=== PATIENT | female | born 1970 | race African-American/Black ===

== ENCOUNTER 2018-06-02 11:06 | Inpatient (IN) | payer OTHER ==
[2018-06-02 11:24] VITALS: BMI 35.6
--- NOTE | 2018-06-02 12:01 | HP ---
COWS - Scale Resting Pulse: 0= [place] 80 or Below Sweatin= Chills/Flushing Restless Observation: 1= Difficult to Sit Still Pupil Size: 1= Pupils >than Normal Bone or Joint Aches: 2= Severe Diffuse Aches Runny Nose/ Eye Tearin= Runny Nose/Eyes GI Upset > 30mins: 2= Nausea/Diarrhea Tremor Observation: 2= Slight Tremor Visible Yawning Observation: 1= 1-2x During Session Anxiety or Irritability: 2=Irritable/Anxious Goose Flesh Skin: 0=Smooth Skin COWS Score: 14 CIWA Score Nausea/Vomitin Muscle Tremors: 2 Anxiety: 2 Agitation: 2 Paroxysmal Sweats: 1-Minimal Palms Moist Orientation: 0-Oriented Tacttile Disturbances: 1-Very Mild Itch/Numbness Auditory Disturbances: 1-Very Mild Visual Disturbances: 0-None Headache: 2-Mild CIWA-Ar Total Score: 13 - Admission Criteria [facility]ASAS Guidelines: Admission for Medically Managed Detox: Requires at least one of the followin. CIWA greater than 12 2. Seizures within the past 24 hours 3. Delirium tremens within the past 24 hours 4. Hallucinations within the past 24 hours 5. Acute intervention needed for co occurring medical disorder 6. Acute intervention needed for co occurring psychiatric disorder 7. Severe withdrawal that cannot be handled at a lower level of care (continued vomiting, continued diarrhea, abnormal vital signs) requiring intravenous medication and/or fluids 8. Patient presents the following: CIWA greater than 12 Admission Criteria Met: Admission criteria met Admission ROS [facility] Chief Complaint: i need help to stop using heroin,alcohol and cocaine Allergies/Adverse Reactions: Allergies Allergy/AdvReac Type Severity Reaction Status Date / Time No Known Allergies Allergy Verified 06/02/18 11:53 History of Present Illness: this 47 years old female with heroin,alcohol and cocaine dependence,seeking detox,withdrawal symptoms,last detox [facility] 04/29/16 to `0/yncope alcohol related bipolar disorder,ptsd,schizoaffective disorder non compliance s/p arthroscopic surgery left knee in 2016 obesity - Ebola screening Have you traveled outside of the country in the last 21 days: No Have you had contact with anyone from an Ebola affected area: No Have you been sick,other than usual withdrawal symptoms: No Do you have a fever: No - Review of Systems Constitutional: Chills, Loss of Appetite, Malaise, Night Sweats, Changes in sleep, Weakness EENT: reports: Tearing, Nose Congestion Respiratory: reports: No Symptoms reported, Other (asthma) Cardiac: reports: No Symptoms Reported GI: reports: Nausea, Poor Appetite, Vomiting, Abdominal cramping : reports: No Symptoms Reported Musculoskeletal: reports: Back Pain, Joint Pain, Muscle Pain Integumentary: reports: Dryness Neuro: reports: Headache, Tremors Endocrine: reports: No Symptoms Reported Hematology: reports: No Symptoms Reported Psychiatric: reports: No Sypmtoms Reported, Judgement Intact, Mood/Affect Appropiate, Orientated x3, Anxious, Depressed (bipolar disorder,ptsd,) Patient History - Patient Medical History Hx Anemia: Yes (NO TXMENT) Hx Asthma: Yes (ALBUTEROL INH) Hx Chronic Obstructive Pulmonary Disease (COPD): No Hx Cancer: No Hx Cardiac Disorders: No Hx Congestive Heart Failure: No Hx Hypertension: No Hx Hypercholesterolemia: No Hx Pacemaker: No HX Cerebrovascular Accident: No Hx Seizures: No Hx Dementia: No Hx Diabetes: No Hx Gastrointestinal Disorders: No Hx Liver Disease: No Hx Genitourinary Disorders: No Hx Sexually Transmitted Disorders: No Hx Renal Disease (ESRD): No Hx Thyroid Disease: No Hx Human Immunodeficiency Virus (HIV): No Hx Hepatitis C: Yes (DX 15 YEARS AGO, NO TXMENT) Hx Depression: Yes (ON MEDS NOT COMPLIANT) Hx Suicide Attempt: No Hx Bipolar Disorder: Yes (ON MEDS NOT COMPLIANT) Hx Schizophrenia: No Other Medical History: ptsd.no sucidal,no homicidal - Patient Surgical History Past Surgical History: Yes Hx Neurologic Surgery: No Hx Cataract Extraction: No Hx Cardiac Surgery: No Hx Lung Surgery: No Hx Breast Surgery: No Hx Breast Biopsy: No Hx Abdominal Surgery: No Hx Appendectomy: No Hx Cholecystectomy: No Hx Genitourinary Surgery: No Hx Section: No Hx Orthopedic Surgery: Yes (L KNEE arthroscopic surgery in 2016) Anesthesia Reaction: No - PPD History Previous Implant?: Yes Documented Results: Negative w/o proof Implanted On Prior R Admission?: Yes Date: 05/02/16 PPD to be Administered?: Yes - Reproductive History Patient is a Female of Child Bearing Age (11 -55 yrs old): Yes Last Menstrual Period: 06/01/18 Patient : No - Smoking Cessation Smoking history: Current every day smoker Have you smoked in the past 12 months: Yes Aproximately how many cigarettes per day: 10 Cigars Per Day: 0 Hx Chewing Tobacco Use: No Initiated information on smoking cessation: Yes 'Breaking Loose' booklet given: 06/02/18 - Substance & Tx. History Hx Alcohol Use: Yes Hx Substance Use: Yes Substance Use Type: Alcohol, Cocaine, Heroin Hx Substance Use Treatment: Yes ([facility] 04/29/16 to 05/03/16) - Substances Abused Heroin Route: Inhalation Frequency: Daily Amount used: 5 BAGS Age of first use: 19 Date of Last Use: 06/02/18 Alcohol Route: Oral Frequency: Daily Amount used: 2 PINT VODKA Age of first use: 15 Date of Last Use: 06/02/18 Crack Route: Smoking Frequency: Daily Amount used: $100 Age of first use: 15 Date of Last Use: 06/02/18 Family Disease History - Family Disease History Family Disease History: Heart Disease: Mother ( [place]/ ALCOHOLISM), Other: Father (ALCOHOLISM), Mother, Sister (ALCOHOL/ CRACK) Admission Physical Exam [facility] - Vital Signs Vital Signs: Vital Signs - 24 hr 06/02/18 11:19 Temperature 97.1 F L Pulse Rate 78 Respiratory 18 Rate Blood Pressure 149/92 - Physical General Appearance: Yes: Moderate Distress, Tremorous, Irritable, Sweating, Anxious HEENTM: Yes: Normal ENT Inspection, ZEUS, Pharynx Normal Respiratory: Yes: Lungs Clear, Normal Breath Sounds, No Respiratory Distress Neck: Yes: Within Normal Limits, Supple, Trachea in good position Breast: Yes: Breast Exam Deferred Cardiology: Yes: Within Normal Limits, Regular Rhythm, Regular Rate, S1, S2 Abdominal: Yes: Within Normal Limits, Normal Bowel Sounds, Non Tender, Flat, Soft Genitourinary: Yes: Within Normal Limits Back: Yes: Muscle Spasm Musculoskeletal: Yes: full range of Motion, Back pain, Joint Stiffness, Muscle Pain Extremities: Yes: Within Normal Limits, Normal Range of Motion, Tremors, Other ( s/p arthroscopy left knee) Neurological: Yes: business planner II-XII NML intact, Fully Oriented, Alert, Motor Strength 5/5 Integumentary: Yes: Dry Lymphatic: Yes: Within Normal Limits - Diagnostic (1) Opioid dependence with withdrawal Current Visit: Yes Status: Acute (2) Alcohol dependence with uncomplicated withdrawal Current Visit: No Status: Acute (3) Asthma Current Visit: No Status: Acute Qualifiers: Asthma severity: mild intermittent Asthma complication type: uncomplicated (4) Cocaine dependence Current Visit: Yes Status: Chronic (5) Hepatitis C Current Visit: Yes Status: Acute (6) Bipolar disorder Current Visit: No Status: Suspected Comment: Historical diagnosis (self- report). (7) Nicotine dependence Current Visit: Yes Status: Acute (8) Obesity Current Visit: Yes Status: Acute (9) History of left knee surgery Current Visit: Yes Status: Acute (10) PTSD (post-traumatic stress disorder) Current Visit: Yes Status: Acute Cleared for Admission S - Detox or Rehab S Level of Care: Medically Managed Detox Regimen/Protocol: Methadone/Librium S Breath Alcohol Content Breath Alcohol Content: 0 Urine Pregancy Test - Result Urine Test Results: Negative- NO Line Present Urine Drug Screen - Results Drug Screen Negative: No Urine Drug Screen Results: JESÚS-Cocaine, OPI-Opiates
[2018-06-02] MEDS ORDERED: LOPERAMIDE HCL 2 MG CAPSULE PO PRN (12:21)
[2018-06-02] MEDS ORDERED: ACETAMINOPHEN 325 MG TABLET (FP) PO PRN (12:21)
[2018-06-02] MEDS ORDERED: P-EPHED 60MG/TRIPROLIDI 2.5MG TABLET PO PRN (12:21)
[2018-06-02] MEDS ORDERED: IBUPROFEN 400 MG TABLET (FP) PO PRN (12:21)
[2018-06-02] MEDS ORDERED: MENTHOL/PHENOL 1 EACH UD MM PRN (12:21)
[2018-06-02] MEDS ORDERED: MAGNESIUM HYDROX 2400MG/30ML ORAL SUSPENSION 30 ML CUP PO PRN (12:21)
[2018-06-02] MEDS ORDERED: chlordiazePOXIDE HCL 25 MG CAPSULE PO PRN (12:21)
[2018-06-02] MEDS ORDERED: MAGNESIUM CITRATE 300 ML BOTTLE PO PRN (12:21)
[2018-06-02] MEDS ORDERED: guaiFENesin/D-METHORPHAN HB 10 ML UNIT-DOSE CUPS PO PRN (12:21)
[2018-06-02] MEDS ORDERED: ALBUTEROL SO4 8 GM HFA INHALER IH PRN (12:25)
[2018-06-02] MEDS ORDERED: METHADONE HCL 10 MG TABLET (FOR DETOX USE ONLY) PO ONE ×2 (13:05→23:00)
[2018-06-02] MEDS: NICOTINE 21 MG/24 HOURS TOPICAL PATCH TD SCH (15:17)
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
[2018-06-02] MEDS: chlordiazePOXIDE HCL 25 MG CAPSULE PO SCH ×2 (18:28→22:16)
[2018-06-02 19:49] LABS: URINE APPEARANCE CLOUDY; URINE BILIRUBIN NEGATIVE (<2.0 mg/dL); URINE GLUCOSE (UA) NEGATIVE (NEGATIVE); URINE KETONE NEGATIVE (NEGATIVE); URINE LEUK ESTERASE TRACE (NEGATIVE); URINE NITRITE NEGATIVE (NEGATIVE); URINE PROTEIN 2+ (NEGATIVE); URINE UROBILINOGEN 4.0 E.U/dl mg/dL (0.2-1.0)
[2018-06-02 20:04] LABS: URINE COLOR BROWN
[2018-06-02 20:08] LABS: EPI CELLS FEW /HPF (FEW)
[2018-06-02] MEDS: MELATONIN 5 MG TABLETS PO PRN (22:16)
[2018-06-02] MEDS: THIAMINE HCL 100 MG TABLET (FP) PO SCH (22:17)
[2018-06-02] MEDS: HALOPERIDOL 5 MG TABLET (FP) PO SCH (22:17)
[2018-06-03] MEDS: chlordiazePOXIDE HCL 25 MG CAPSULE PO SCH ×4 (06:07→22:36)
[2018-06-03] MEDS ORDERED: METHADONE HCL 10 MG TABLET (FOR DETOX USE ONLY) PO SCH (10:00)
[2018-06-03] MEDS: PRENATAL VITAMINS W/ FOLIC ACID TABLET (FP) PO SCH (10:07)
[2018-06-03] MEDS: NICOTINE 21 MG/24 HOURS TOPICAL PATCH TD SCH (10:08)
--- NOTE | 2018-06-03 10:24 | PN ---
[facility] CIWA - CIWA Score Nausea/Vomitin-No Nausea/No Vomiting Muscle Tremors: 3 Anxiety: 3 Agitation: 3 Paroxysmal Sweats: 3 Orientation: 0-Oriented Tacttile Disturbances: 0-None Auditory Disturbances: 0-None Visual Disturbances: 0-None Headache: 0-None Present CIWA-Ar Total Score: 12 [facility]HS COWS - Scale Resting Pulse: 1= [place] 81-100 Sweatin=Flushed/Facial Moisture Restless Observation: 1= Difficult to Sit Still Pupil Size: 0= Normal to Room Light Bone or Joint Aches: 2= Severe Diffuse Aches Runny Nose/ Eye Tearin= Nasal Congestion GI Upset > 30mins: 1= Stomach Cramp Tremor Observation of Outstretched Hands: 2= Slight Tremor Visible Yawning Observation: 2= >3x During Session Anxiety or Irritability: 2=Irritable/Anxious Goose Flesh Skin: 0=Smooth Skin COWS Score: 14 S Progress Note (SOAP) Subjective: agitation sleepy sweats chills interrupted sleep body aches Objective: 06/03/18 10:22 Vital Signs Temperature 98.1 F 06/03/18 09:54 Pulse Rate 83 06/03/18 09:54 Respiratory Rate 18 06/03/18 09:54 Blood Pressure 151/84 06/03/18 09:54 O2 Sat by Pulse Oximetry (%) Laboratory Tests 06/02/18 06/02/18 12:00 13:30 Urine Color Brown Urine Appearance Cloudy Urine pH 6.0 Ur Specific [place] 1.025 Urine Protein 2+ H Urine Glucose (UA) Negative Urine Ketones Negative Urine Blood 3+ H Urine Nitrite Negative Urine Bilirubin Negative Urine Urobilinogen 4.0 e.u/dl H Ur Leukocyte Esterase Trace Urine WBC (Auto) 217 Urine RBC (Auto) 373 Ur Epithelial Cells Few HIV 1&2 Antibody Screen Negative HIV P24 Antigen Negative repeat u/a labs pending aaox3 ambulating no acute distress Assessment: 06/03/18 11:03 withdrawal sx Plan: continue detox increase fluids repeat u/a labs pending
[2018-06-03 10:27] LABS: HEMOGLOBIN 13.1 GM/dL (10.7-15.3); MCH 28.7 pg (25.7-33.7); MCHC 31.9 g/dl (32.0-36.0); MEAN CELL VOLUME 89.8 fl (80-96); MEAN PLT VOLUME 10.3 fl (7.5-11.1); PLATELET COUNT 264 K/MM3 (134-434); RBC 4.57 M/mm3 (3.60-5.2); RDW 14.4 % (11.6-15.6); WHITE BLOOD COUNT 6.1 K/mm3 (4.0-10.0)
[2018-06-03 11:16] LABS: ALBUMIN 3.2 g/dl (3.4-5.0); ALK PHOS 69 U/L (45-117); ANION GAP 8 MMOL/L (8-16); BILIRUBIN,TOTAL 0.4 mg/dL (0.2-1); BLOOD UREA NITROGEN 20 mg/dL (7-18); CALCIUM 9.1 mg/dL (8.5-10.1); CHLORIDE 110 mmol/L (98-107); CO2 24 mmol/L (21-32); CREATININE 1.1 mg/dL (0.55-1.3); GLUCOSE,RANDOM 81 mg/dL (74-106); POTASSIUM 4.5 mmol/L (3.5-5.1); SGOT/AST 31 U/L (15-37); SGPT/ALT 52 U/L (13-61); SODIUM 141 mmol/L (136-145); TOT PROT 7.8 g/dl (6.4-8.2)
--- NOTE | 2018-06-03 17:02 | PN ---
[facility] Progress Note Note: Psychiatric nurse practitioner note: Patient is currently on methadone taper and is ordered Haldol 5mg qhs. Medication interactions can cause prolong QTC. EKG as not been ordered. Will order EKG.
[2018-06-03] MEDS: HALOPERIDOL 5 MG TABLET (FP) PO SCH (22:36)
[2018-06-03] MEDS: BENZTROPINE MESYLATE 1 MG TABLET (FP) PO SCH (22:36)
[2018-06-03] MEDS: THIAMINE HCL 100 MG TABLET (FP) PO SCH (22:36)
[2018-06-04] MEDS: chlordiazePOXIDE HCL 25 MG CAPSULE PO SCH ×2 (05:37→10:28)
[2018-06-04] MEDS: PRENATAL VITAMINS W/ FOLIC ACID TABLET (FP) PO SCH (10:28)
[2018-06-04] MEDS: METHADONE HCL 5 MG TABLET (FOR DETOX USE ONLY) PO SCH (10:28)
[2018-06-04] MEDS: NICOTINE 21 MG/24 HOURS TOPICAL PATCH TD SCH (10:28)
--- NOTE | 2018-06-04 10:33 | PN ---
[facility] CIWA - CIWA Score Nausea/Vomitin-No Nausea/No Vomiting Muscle Tremors: 3 Anxiety: 3 Agitation: 3 Paroxysmal Sweats: 3 Orientation: 0-Oriented Tacttile Disturbances: 0-None Auditory Disturbances: 0-None Visual Disturbances: 0-None Headache: 0-None Present CIWA-Ar Total Score: 12 [facility] COWS - Scale Resting Pulse: 1= [place] 81-100 Sweatin=Flushed/Facial Moisture Restless Observation: 0= Sits Still Pupil Size: 0= Normal to Room Light Bone or Joint Aches: 2= Severe Diffuse Aches Runny Nose/ Eye Tearin= Nasal Congestion GI Upset > 30mins: 0= None Tremor Observation of Outstretched Hands: 2= Slight Tremor Visible Yawning Observation: 2= >3x During Session Anxiety or Irritability: 2=Irritable/Anxious Goose Flesh Skin: 0=Smooth Skin COWS Score: 12 S Progress Note (SOAP) Subjective: irritable body aches sweats interrupted sleep tired I think i have a UTI Objective: 06/04/18 10:30 Vital Signs Temperature 97.9 F 06/04/18 09:35 Pulse Rate 84 06/04/18 09:35 Respiratory Rate 18 06/04/18 09:35 Blood Pressure 130/62 06/04/18 09:35 O2 Sat by Pulse Oximetry (%) Laboratory Tests 06/02/18 06/02/18 06/03/18 12:00 13:30 06:00 WBC 6.1 RBC 4.57 Hgb 13.1 Hct 41.0 D MCV 89.8 MCH 28.7 MCHC 31.9 L RDW 14.4 Plt Count 264 D MPV 10.3 Sodium Potassium Chloride Carbon Dioxide Anion Gap BUN Creatinine Creat Clearance w eGFR Random Glucose Calcium Total Bilirubin AST ALT Alkaline Phosphatase Total Protein Albumin Urine Color Brown Urine Appearance Cloudy Urine pH 6.0 Ur Specific [place] 1.025 Urine Protein 2+ H Urine Glucose (UA) Negative Urine Ketones Negative Urine Blood 3+ H Urine Nitrite Negative Urine Bilirubin Negative Urine Urobilinogen 4.0 e.u/dl H Ur Leukocyte Esterase Trace Urine WBC (Auto) 217 Urine RBC (Auto) 373 Ur Epithelial Cells Few HIV 1&2 Antibody Screen Negative HIV P24 Antigen Negative 06/03/18 06:00 WBC RBC Hgb Hct MCV MCH MCHC RDW Plt Count MPV Sodium 141 Potassium 4.5 Chloride 110 H Carbon Dioxide 24 Anion Gap 8 BUN 20 H Creatinine 1.1 Creat Clearance w eGFR 53.47 Random Glucose 81 Calcium 9.1 Total Bilirubin 0.4 AST 31 ALT 52 Alkaline Phosphatase 69 Total Protein 7.8 Albumin 3.2 L Urine Color Urine Appearance Urine pH Ur Specific [place] Urine Protein Urine Glucose (UA) Urine Ketones Urine Blood Urine Nitrite Urine Bilirubin Urine Urobilinogen Ur Leukocyte Esterase Urine WBC (Auto) Urine RBC (Auto) Ur Epithelial Cells HIV 1&2 Antibody Screen HIV P24 Antigen aaox3 ambulating no acute distress elevated WBC in urine noted; ABX ordered Assessment: 06/04/18 10:33 withdrawal sx Plan: continue detox increase fluids ABX ordered repeat u/a
[2018-06-04] MEDS: SULFAMETHOXAZOLE/TRIMETHOPRIM 800MG/160MG D.S. TABLET PO SCH ×2 (10:58→23:10)
[2018-06-04] MEDS: chlordiazePOXIDE 5 MG CAPSULE PO SCH ×2 (18:51→23:10)
[2018-06-04] MEDS: HALOPERIDOL 5 MG TABLET (FP) PO SCH (23:11)
[2018-06-04] MEDS: THIAMINE HCL 100 MG TABLET (FP) PO SCH (23:11)
[2018-06-04] MEDS: BENZTROPINE MESYLATE 1 MG TABLET (FP) PO SCH (23:11)
[2018-06-05] MEDS: MAG HYDROX/AL HYDROX/SIMETH 30 ML UNIT-DOSE CUP PO PRN ×2 (01:42→13:10)
[2018-06-05 01:46] LABS: URINE APPEARANCE CLOUDY; URINE BILIRUBIN NEGATIVE (<2.0 mg/dL); URINE COLOR YELLOW; URINE GLUCOSE (UA) NEGATIVE (NEGATIVE); URINE KETONE NEGATIVE (NEGATIVE); URINE LEUK ESTERASE TRACE (NEGATIVE); URINE NITRITE NEGATIVE (NEGATIVE); URINE PROTEIN NEGATIVE (NEGATIVE)
[2018-06-05 02:19] LABS: EPI CELLS RARE /HPF (FEW); URINE BACTERIA FEW /hpf (NONE SEEN); URINE HYALINE CAST 1 /lpf; URINE MUCUS RARE
[2018-06-05] MEDS: chlordiazePOXIDE 5 MG CAPSULE PO SCH ×2 (05:46→10:46)
--- NOTE | 2018-06-05 09:52 | EKG ---
Test Reason : Blood Pressure : / mmHG Vent. Rate : 069 BPM Atrial Rate : 069 BPM P-R Int : 154 ms QRS Dur : 080 ms QT Int : 428 ms P-R-T Axes : 039 069 046 degrees QTc Int : 458 ms NORMAL SINUS RHYTHM POSSIBLE LEFT ATRIAL ENLARGEMENT NO PREVIOUS ECGS AVAILABLE Confirmed by IZZY DAVALOS MD ([id number]) on 06/05/2018 9:52:44 AM Referred By: Confirmed By:IZZY DAVALOS MD
[2018-06-05] MEDS: PRENATAL VITAMINS W/ FOLIC ACID TABLET (FP) PO SCH (10:46)
[2018-06-05] MEDS: METHADONE HCL 5 MG TABLET (FOR DETOX USE ONLY) PO SCH (10:46)
[2018-06-05] MEDS: SULFAMETHOXAZOLE/TRIMETHOPRIM 800MG/160MG D.S. TABLET PO SCH ×2 (10:46→22:58)
[2018-06-05] MEDS: NICOTINE 21 MG/24 HOURS TOPICAL PATCH TD SCH (10:47)
--- NOTE | 2018-06-05 12:13 | PN ---
[facility] Progress Note (SOAP) Subjective: little sweats feeling better. Objective: 06/05/18 12:12 Vital Signs Temperature 98.4 F 06/05/18 09:21 Pulse Rate 67 06/05/18 09:21 Respiratory Rate 18 06/05/18 09:21 Blood Pressure 135/80 06/05/18 09:21 O2 Sat by Pulse Oximetry (%) Laboratory Tests 06/02/18 06/02/18 06/03/18 12:00 13:30 06:00 WBC 6.1 RBC 4.57 Hgb 13.1 Hct 41.0 D MCV 89.8 MCH 28.7 MCHC 31.9 L RDW 14.4 Plt Count 264 D MPV 10.3 Sodium Potassium Chloride Carbon Dioxide Anion Gap BUN Creatinine Creat Clearance w eGFR Random Glucose Calcium Total Bilirubin AST ALT Alkaline Phosphatase Total Protein Albumin Urine Color Brown Urine Appearance Cloudy Urine pH 6.0 Ur Specific [place] 1.025 Urine Protein 2+ H Urine Glucose (UA) Negative Urine Ketones Negative Urine Blood 3+ H Urine Nitrite Negative Urine Bilirubin Negative Urine Urobilinogen 4.0 e.u/dl H Ur Leukocyte Esterase Trace Urine WBC (Auto) 217 Urine RBC (Auto) 373 Ur Epithelial Cells Few Urine Bacteria Hyaline Casts Urine Mucus RPR Titer HIV 1&2 Antibody Screen Negative HIV P24 Antigen Negative 06/03/18 06/03/18 06/04/18 06:00 06:00 14:50 WBC RBC Hgb Hct MCV MCH MCHC RDW Plt Count MPV Sodium 141 Potassium 4.5 Chloride 110 H Carbon Dioxide 24 Anion Gap 8 BUN 20 H Creatinine 1.1 Creat Clearance w eGFR 53.47 Random Glucose 81 Calcium 9.1 Total Bilirubin 0.4 AST 31 ALT 52 Alkaline Phosphatase 69 Total Protein 7.8 Albumin 3.2 L Urine Color Yellow Urine Appearance Cloudy Urine pH 5.0 Ur Specific [place] 1.020 Urine Protein Negative Urine Glucose (UA) Negative Urine Ketones Negative Urine Blood 3+ H Urine Nitrite Negative Urine Bilirubin Negative Urine Urobilinogen 2.0 H Ur Leukocyte Esterase Trace Urine WBC (Auto) 6 Urine RBC (Auto) 4 Ur Epithelial Cells Rare Urine Bacteria Few Hyaline Casts 1 Urine Mucus Rare RPR Titer Nonreactive HIV 1&2 Antibody Screen HIV P24 Antigen u/a improving pt on ABX aaox3 ambulating no acute distress Assessment: 06/05/18 12:13 withdrawal sx Plan: continue detox increase fluids d/c in am
[2018-06-05] MEDS: chlordiazePOXIDE HCL 10 MG CAPSULE PO SCH ×2 (21:32→22:58)
[2018-06-05] MEDS: THIAMINE HCL 100 MG TABLET (FP) PO SCH (22:58)
[2018-06-05] MEDS: HALOPERIDOL 5 MG TABLET (FP) PO SCH (22:58)
[2018-06-05] MEDS: BENZTROPINE MESYLATE 1 MG TABLET (FP) PO SCH (22:58)
[2018-06-06] MEDS: chlordiazePOXIDE HCL 10 MG CAPSULE PO SCH ×2 (05:37→10:15)
[2018-06-06] MEDS ORDERED: METHADONE HCL 10 MG TABLET (FOR DETOX USE ONLY) PO SCH (10:00)
[2018-06-06] MEDS: SULFAMETHOXAZOLE/TRIMETHOPRIM 800MG/160MG D.S. TABLET PO SCH ×2 (10:15→22:05)
[2018-06-06] MEDS: PRENATAL VITAMINS W/ FOLIC ACID TABLET (FP) PO SCH (10:15)
[2018-06-06] MEDS: NICOTINE 21 MG/24 HOURS TOPICAL PATCH TD SCH (10:15)
--- NOTE | 2018-06-06 12:50 | PN ---
[facility] Progress Note (SOAP) Subjective: feeling better Objective: 06/06/18 12:49 Vital Signs Temperature 99.7 F H 06/06/18 09:40 Pulse Rate 73 06/06/18 09:40 Respiratory Rate 16 06/06/18 09:40 Blood Pressure 128/54 L 06/06/18 09:40 O2 Sat by Pulse Oximetry (%) aaox3 ambulating no acute distress Assessment: 06/06/18 12:49 mild to no withdrawal sx Plan: continue detox as ordered increase fluids d/c in am
[2018-06-06] MEDS: MAG HYDROX/AL HYDROX/SIMETH 30 ML UNIT-DOSE CUP PO PRN ×2 (13:20→21:54)
[2018-06-06] MEDS: HALOPERIDOL 5 MG TABLET (FP) PO SCH (22:05)
[2018-06-06] MEDS: BENZTROPINE MESYLATE 1 MG TABLET (FP) PO SCH (22:05)
[2018-06-06] MEDS: THIAMINE HCL 100 MG TABLET (FP) PO SCH (22:05)
[2018-06-06] MEDS: MELATONIN 5 MG TABLETS PO PRN (22:06)
[2018-06-07] MEDS ORDERED: METHADONE HCL 5 MG TABLET (FOR DETOX USE ONLY) PO SCH (06:00)
[2018-06-07 09:34] VITALS: BP 138/61; PULSE 100; TEMP 98.9
--- NOTE | 2018-06-07 12:43 | DS ---
[facility] Detox Discharge Summary Admission Date: 06/02/18 Discharge Date: 06/07/18 - History Present History: Alcohol Dependence, Opioid Dependence Additional Comments: 47 years old female admitted on 06/02/18 for alcohol and opiate withdrawal sx completed detox regimen tolerated well denies withdrawal sx alert oriented x 3 no acute distress aftercare [facility] - Physical Exam Results Vital Signs: Vital Signs Temperature 98.9 F 06/07/18 09:33 Pulse Rate 100 H 06/07/18 09:33 Respiratory Rate 16 06/07/18 09:33 Blood Pressure 138/61 06/07/18 09:33 O2 Sat by Pulse Oximetry (%) Pertinent Admission Physical Exam Findings: alcohol and opiate withdrawal sx Vital Signs Temperature 98.9 F 06/07/18 09:33 Pulse Rate 100 H 06/07/18 09:33 Respiratory Rate 16 06/07/18 09:33 Blood Pressure 138/61 06/07/18 09:33 O2 Sat by Pulse Oximetry (%) Laboratory Last Values WBC 6.1 K/mm3 (4.0-10.0) 06/03/18 06:00 RBC 4.57 M/mm3 (3.60-5.2) 06/03/18 06:00 Hgb 13.1 GM/dL (10.7-15.3) 06/03/18 06:00 Hct 41.0 % (32.4-45.2) D 06/03/18 06:00 MCV 89.8 fl (80-96) 06/03/18 06:00 MCH 28.7 pg (25.7-33.7) 06/03/18 06:00 MCHC 31.9 g/dl (32.0-36.0) L 06/03/18 06:00 RDW 14.4 % (11.6-15.6) 06/03/18 06:00 Plt Count 264 K/MM3 (134-434) D 06/03/18 06:00 MPV 10.3 fl (7.5-11.1) 06/03/18 06:00 Sodium 141 mmol/L (136-145) 06/03/18 06:00 Potassium 4.5 mmol/L (3.5-5.1) 06/03/18 06:00 Chloride 110 mmol/L (98-107) H 06/03/18 06:00 Carbon Dioxide 24 mmol/L (21-32) 06/03/18 06:00 Anion Gap 8 MMOL/L (8-16) 06/03/18 06:00 BUN 20 mg/dL (7-18) H 06/03/18 06:00 Creatinine 1.1 mg/dL (0.55-1.3) 06/03/18 06:00 Creat Clearance w eGFR 53.47 (>60) 06/03/18 06:00 Random Glucose 81 mg/dL (74-106) 06/03/18 06:00 Calcium 9.1 mg/dL (8.5-10.1) 06/03/18 06:00 Total Bilirubin 0.4 mg/dL (0.2-1) 06/03/18 06:00 AST 31 U/L (15-37) 06/03/18 06:00 ALT 52 U/L (13-61) 06/03/18 06:00 Alkaline Phosphatase 69 U/L (45-117) 06/03/18 06:00 Total Protein 7.8 g/dl (6.4-8.2) 06/03/18 06:00 Albumin 3.2 g/dl (3.4-5.0) L 06/03/18 06:00 Urine Color Yellow 06/04/18 14:50 Urine Appearance Cloudy 06/04/18 14:50 Urine pH 5.0 (5.0-8.0) 06/04/18 14:50 Ur Specific [place] 1.020 (1.010-1.035) 06/04/18 14:50 Urine Protein Negative (NEGATIVE) 06/04/18 14:50 Urine Glucose (UA) Negative (NEGATIVE) 06/04/18 14:50 Urine Ketones Negative (NEGATIVE) 06/04/18 14:50 Urine Blood 3+ (NEGATIVE) H 06/04/18 14:50 Urine Nitrite Negative (NEGATIVE) 06/04/18 14:50 Urine Bilirubin Negative (<2.0 mg/dL) 06/04/18 14:50 Urine Urobilinogen 2.0 mg/dL (0.2-1.0) H 06/04/18 14:50 Ur Leukocyte Esterase Trace (NEGATIVE) 06/04/18 14:50 Urine WBC (Auto) 6 /hpf (3-5) 06/04/18 14:50 Urine RBC (Auto) 4 /hpf (0-3) 06/04/18 14:50 Ur Epithelial Cells Rare /HPF (FEW) 06/04/18 14:50 Urine Bacteria Few /hpf (NONE SEEN) 06/04/18 14:50 Hyaline Casts 1 /lpf 06/04/18 14:50 Urine Mucus Rare 06/04/18 14:50 RPR Titer Nonreactive (NONREACTIVE) 06/03/18 06:00 HIV 1&2 Antibody Screen Negative 06/02/18 12:00 HIV P24 Antigen Negative 06/02/18 12:00 lab ntoed - Treatment Hospital Course: Detox Protocol Followed, Detoxed Safely, Responded well, Discharged Condition Good, Rehab Referral Accepted Patient has Accepted a Rehab Referral to: [facility] - Medication Discharge Medications: Ambulatory Orders Sulfamethoxazole/Trimethoprim [Bactrim DS -] 1 each PO BID #10 tablet 06/07/18 - Diagnosis (1) Alcohol dependence with uncomplicated withdrawal Status: Acute (2) Hepatitis C Status: Chronic Qualifiers: Viral hepatitis chronicity: unspecified Hepatic coma status: without hepatic coma Qualified Code(s): B19.20 - Unspecified viral hepatitis C without hepatic coma (3) Nicotine dependence Status: Acute Qualifiers: Nicotine product type: cigarettes Substance use status: in withdrawal Qualified Code(s): F17.213 - Nicotine dependence, cigarettes, with withdrawal (4) Substance induced mood disorder Status: Suspected - AMA Did Patient Leave Against Medical Advice: No
== END 2018-06-07 10:08 | disposition home or self-care (01) | DRG 773 ==
LOC: YASAS 11:06 → Y6N 12:22
PROVIDERS: ADMIT Neuromusculoskeletal Medicine & OMM; ATTEND Neuromusculoskeletal Medicine & OMM
PROC: HZ2ZZZZ Detoxification Services for Substance Abuse Treatment (ICD-10-PCS; principal; 2018-06-02)
DX: F11.23 Opioid dependence with withdrawal (principal); F10.230 Alcohol dependence with withdrawal, uncomplicated; F14.20 Cocaine dependence, uncomplicated; F17.210 Nicotine dependence, cigarettes, uncomplicated; F19.24 Other psychoactive substance dependence with psychoactive substance-induced mood disorder; F31.9 Bipolar disorder, unspecified; F60.9 Personality disorder, unspecified; F25.9 Schizoaffective disorder, unspecified; F43.10 Post-traumatic stress disorder, unspecified; B18.2 Chronic viral hepatitis C; D64.9 Anemia, unspecified; J45.909 Unspecified asthma, uncomplicated; E66.9 Obesity, unspecified; Z68.35 Body mass index [BMI] 35.0-35.9, adult; Z98.890 Other specified postprocedural states
CPT/HCPCS: 36415; 80053; 81003; 81015; 85027; 86593; 87389; 93005; 93010

== ENCOUNTER 2018-10-14 20:45 | Inpatient (IN) | payer OTHER ==
--- NOTE | 2018-10-14 22:58 | HP ---
COWS - Scale Resting Pulse: 1= MO 81-100 Sweatin=Flushed/Facial Moisture Restless Observation: 0= Sits Still Pupil Size: 1= Pupils >than Normal Bone or Joint Aches: 4=Acute Joint/Muscle Pain Runny Nose/ Eye Tearin= Runny Nose/Eyes GI Upset > 30mins: 1= Stomach Cramp Tremor Observation: 4= Gross Tremor/Twitching Yawning Observation: 1= 1-2x During Session Anxiety or Irritability: 2=Irritable/Anxious Goose Flesh Skin: 0=Smooth Skin COWS Score: 18 CIWA Score Nausea/Vomitin-Mild Nausea/No Vomiting Muscle Tremors: 4-Moderate,w/Arms Extend Anxiety: 4-Mod. Anxious/Guarded Agitation: 4-Moderately Restless Paroxysmal Sweats: 2 Orientation: 0-Oriented Tacttile Disturbances: 0-None Auditory Disturbances: 0-None Visual Disturbances: 0-None Headache: 3-Moderate CIWA-Ar Total Score: 18 - Admission Criteria OASAS Guidelines: Admission for Medically Managed Detox: Requires at least one of the followin. CIWA greater than 12 2. Seizures within the past 24 hours 3. Delirium tremens within the past 24 hours 4. Hallucinations within the past 24 hours 5. Acute intervention needed for co occurring medical disorder 6. Acute intervention needed for co occurring psychiatric disorder 7. Severe withdrawal that cannot be handled at a lower level of care (continued vomiting, continued diarrhea, abnormal vital signs) requiring intravenous medication and/or fluids 8. 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 Patient was in detox 2017 - 06/09/2018. She reports 2 days of sobriety. She reports history of anxiety, anemia, Hep C and asthma. Patient denies suicidal ideation at this time Exam Limitations: No Limitations - Ebola screening Have you traveled outside of the country in the last 21 days: No (N) Have you had contact with anyone from an Ebola affected area: No Do you have a fever: No - Review of Systems Constitutional: Chills, Night Sweats, Unexplained wgt Loss EENT: reports: Nose Congestion Respiratory: reports: No Symptoms reported Cardiac: reports: No Symptoms Reported GI: reports: Poor Appetite, Poor Fluid Intake, Abdominal cramping : reports: No Symptoms Reported Musculoskeletal: reports: Back Pain Integumentary: reports: Dryness, Flushing Neuro: reports: Headache, Tremors Endocrine: reports: No Symptoms Reported Hematology: reports: No Symptoms Reported Psychiatric: reports: Anxious, Depressed Other Systems: Reviewed and Negative Patient History - Patient Medical History Hx Anemia: Yes (NO TXMENT) Hx Asthma: Yes (ALBUTEROL INH) Hx Chronic Obstructive Pulmonary Disease (COPD): No Hx Cancer: No Hx Cardiac Disorders: No Hx Congestive Heart Failure: No Hx Hypertension: No Hx Hypercholesterolemia: No Hx Pacemaker: No HX Cerebrovascular Accident: No Hx Seizures: No Hx Dementia: No Hx Diabetes: No Hx Gastrointestinal Disorders: No Hx Liver Disease: No Hx Genitourinary Disorders: No Hx Sexually Transmitted Disorders: No Hx Renal Disease (ESRD): No Hx Thyroid Disease: No Hx Human Immunodeficiency Virus (HIV): No Hx Hepatitis C: Yes (DX 15 YEARS AGO, NO TXMENT) Hx Depression: Yes (ON MEDS NOT COMPLIANT) Hx Suicide Attempt: No (DENIES SUICIDAL IDEATION AT THIS TIME) Hx Bipolar Disorder: Yes (ON MEDS NOT COMPLIANT) Hx Schizophrenia: No - Patient Surgical History Past Surgical History: Yes Hx Neurologic Surgery: No Hx Cataract Extraction: No Hx Cardiac Surgery: No Hx Lung Surgery: No Hx Breast Surgery: No Hx Breast Biopsy: No Hx Abdominal Surgery: No Hx Appendectomy: No Hx Cholecystectomy: No Hx Genitourinary Surgery: No Hx Section: No Hx Orthopedic Surgery: Yes (L KNEE arthroscopic surgery in 2016) Anesthesia Reaction: No - PPD History Date: 06/04/18 Results: 0 mm PPD to be Administered?: No - Reproductive History Patient is a Female of Child Bearing Age (11 -55 yrs old): Yes Last Menstrual Period: 06/01/18 Patient : No - Smoking Cessation Smoking history: Current every day smoker Have you smoked in the past 12 months: Yes Aproximately how many cigarettes per day: 10 Cigars Per Day: 0 Hx Chewing Tobacco Use: No Initiated information on smoking cessation: Yes 'Breaking Loose' booklet given: 10/14/18 - Substance & Tx. History Hx Alcohol Use: Yes Hx Substance Use: Yes Substance Use Type: Alcohol, Cocaine - Substances abused Heroin Substance route: Inhalation Frequency: Daily Amount used: 3 to 6 bags Age of first use: 47 Crack Substance route: Smoking Frequency: Daily Amount used: 10 bags Age of first use: 15 Date of last use: 10/14/18 Alcohol Substance route: Smoking Frequency: Daily Amount used: half a pint Age of first use: 14 Date of last use: 10/14/18 Family Disease History - Family Disease History Family Disease History: Heart Disease: Mother ( PA/ ALCOHOLISM), Other: Father (ALCOHOLISM), Mother, Sister (ALCOHOL/ CRACK) Admission Physical Exam [facility] - Vital Signs Vital Signs: Vital Signs - 24 hr 10/14/18 22:15 Temperature 97.8 F Pulse Rate 90 Respiratory 20 Rate Blood Pressure 136/89 - Physical General Appearance: Yes: Moderate Distress, Tremorous, Sweating, Anxious HEENTM: Yes: Normal Voice, ZEUS, Pharynx Normal Respiratory: Yes: Lungs Clear, Normal Breath Sounds, No Respiratory Distress Neck: Yes: Supple Breast: Yes: Breast Exam Deferred Cardiology: Yes: Regular Rhythm, Regular Rate Abdominal: Yes: Normal Bowel Sounds Genitourinary: Yes: Within Normal Limits Back: Yes: Normal Inspection Musculoskeletal: Yes: Back pain Extremities: Yes: Tremors Neurological: Yes: Alert, Normal Mood/Affect Integumentary: Yes: Warm Lymphatic: Yes: Within Normal Limits - Diagnostic (1) Asthma Current Visit: Yes Status: Chronic Qualifiers: Asthma severity: mild intermittent Asthma complication type: uncomplicated (2) Nicotine dependence Current Visit: Yes Status: Chronic Qualifiers: Nicotine product type: cigarettes Substance use status: in withdrawal Qualified Code(s): F17.213 - Nicotine dependence, cigarettes, with withdrawal (3) Obesity Current Visit: Yes Status: Chronic (4) Opioid dependence with withdrawal Current Visit: Yes Status: Chronic (5) Cocaine dependence Current Visit: Yes Status: Chronic (6) Hepatitis C Current Visit: Yes Status: Chronic Qualifiers: Viral hepatitis chronicity: unspecified Hepatic coma status: without hepatic coma Qualified Code(s): B19.20 - Unspecified viral hepatitis C without hepatic coma Cleared for Admission S - Detox or Rehab [facility] Level of Care: Medically Managed Detox Regimen/Protocol: Methadone/Librium Breathalyzer - Breathalyzer Breathalyzer: 0 POC Urine test - Test device test lot number: [id number] Expiration date: 03/13/20 - Control test control: Yes - Result Urine Test Results: Negative - NO line present Urine Drug Screen - Test Device Lot number: [id number] Expiration date: 10/11/19 - Control Is test valid?: Yes - Results Drug screen NEGATIVE: No Urine drug screen results: JESÚS-Cocaine, MOP-Opiates Inpatient Rehab Admission - Rehab Decision to Admit Inpatient rehab admission?: No
[2018-10-14] MEDS ORDERED: METHADONE HCL 10 MG TABLET (FOR DETOX USE ONLY) PO ONE (23:00)
[2018-10-14] MEDS ORDERED: BISMUTH SUBSALICYLATE 524 MG/30 ML UD PO PRN (23:08)
[2018-10-14] MEDS ORDERED: MAG HYDROX/AL HYDROX/SIMETH 30 ML UNIT-DOSE CUP PO PRN (23:08)
[2018-10-14] MEDS ORDERED: cloNIDine HCL 0.1 MG TABLET PO PRN (23:08)
[2018-10-14] MEDS ORDERED: METHOCARBAMOL 500 MG TABLET PO PRN (23:08)
[2018-10-14] MEDS ORDERED: MAGNESIUM HYDROX 2400MG/30ML ORAL SUSPENSION 30 ML CUP PO PRN (23:08)
[2018-10-14] MEDS ORDERED: chlordiazePOXIDE HCL 25 MG CAPSULE PO PRN (23:08)
[2018-10-14] MEDS ORDERED: MAGNESIUM CITRATE 300 ML BOTTLE PO PRN (23:08)
[2018-10-14] MEDS ORDERED: ACETAMINOPHEN 325 MG TABLET (FP) PO PRN ×2 (23:08)
[2018-10-14] MEDS ORDERED: MENTHOL/PHENOL 1 EACH UD MM PRN (23:08)
[2018-10-14] MEDS ORDERED: IBUPROFEN 400 MG TABLET (FP) PO PRN (23:08)
[2018-10-15] MEDS: chlordiazePOXIDE HCL 25 MG CAPSULE PO SCH ×5 (00:03→22:30)
[2018-10-15] MEDS: MELATONIN 5 MG TABLETS PO PRN (01:47)
[2018-10-15] MEDS ORDERED: NICOTINE POLACRILEX 2 MG GUM BUC PRN (07:08)
--- NOTE | 2018-10-15 09:31 | PN ---
S CIWA - CIWA Score Nausea/Vomitin Muscle Tremors: 2 Anxiety: 2 Agitation: 2 Paroxysmal Sweats: 1-Minimal Palms Moist Orientation: 0-Oriented Tacttile Disturbances: 1-Very Mild Itch/Numbness Auditory Disturbances: 1-Very Mild Visual Disturbances: 0-None Headache: 2-Mild CIWA-Ar Total Score: 13 BHS COWS - Scale Resting Pulse: 0= ND 80 or Below Sweatin= Chills/Flushing Restless Observation: 1= Difficult to Sit Still Pupil Size: 1= Pupils >than Normal Bone or Joint Aches: 2= Severe Diffuse Aches Runny Nose/ Eye Tearin= Nasal Congestion GI Upset > 30mins: 2= Nausea/Diarrhea Tremor Observation of Outstretched Hands: 2= Slight Tremor Visible Yawning Observation: 1= 1-2x During Session Anxiety or Irritability: 2=Irritable/Anxious Goose Flesh Skin: 0=Smooth Skin COWS Score: 13 BHS Progress Note (SOAP) Subjective: alert,irritable,anxious,interrupted sleep,tremor,pain in the body and back Objective: 10/15/18 09:30 Vital Signs Temperature 97.5 F L 10/15/18 07:29 Pulse Rate 77 10/15/18 07:29 Respiratory Rate 18 10/15/18 07:29 Blood Pressure 123/62 10/15/18 07:29 O2 Sat by Pulse Oximetry (%) 10/15/18 09:30 labs pending Assessment: 10/15/18 09:30 withdrawal symptom Plan: continue detox
[2018-10-15] MEDS ORDERED: METHADONE HCL 10 MG TABLET (FOR DETOX USE ONLY) PO ONE (10:00)
[2018-10-15] MEDS: PRENATAL VITAMINS W/ FOLIC ACID TABLET (FP) PO SCH (10:22)
[2018-10-15 10:23] LABS: HEMOGLOBIN 12.2 GM/dL (10.7-15.3); MCH 29.7 pg (25.7-33.7); MEAN CELL VOLUME 90.2 fl (80-96); MEAN PLT VOLUME 10.3 fl (7.5-11.1); PLATELET COUNT 214 K/MM3 (134-434); RDW 14.7 % (11.6-15.6); WHITE BLOOD COUNT 6.4 K/mm3 (4.0-10.0)
[2018-10-15] MEDS: NICOTINE 14 MG/24 HOURS TOPICAL PATCH TD SCH (10:25)
[2018-10-15 10:32] LABS: ALBUMIN 2.7 g/dl (3.4-5.0); ALK PHOS 66 U/L (45-117); BILIRUBIN,TOTAL 0.1 mg/dL (0.2-1); BLOOD UREA NITROGEN 21 mg/dL (7-18); CALCIUM 8.5 mg/dL (8.5-10.1); CHLORIDE 110 mmol/L (98-107); CO2 25 mmol/L (21-32); CREATININE 1.2 mg/dL (0.55-1.3); GLUCOSE,RANDOM 90 mg/dL (74-106); POTASSIUM 3.7 mmol/L (3.5-5.1); SGOT/AST 27 U/L (15-37); SGPT/ALT 42 U/L (13-61); SODIUM 144 mmol/L (136-145); TOT PROT 6.6 g/dl (6.4-8.2)
[2018-10-15 10:39] LABS: ANION GAP 8 MMOL/L (8-16)
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
[2018-10-15] MEDS: THIAMINE HCL 100 MG TABLET (FP) PO SCH (22:28)
[2018-10-15] MEDS: HALOPERIDOL 5 MG TABLET (FP) PO SCH (22:29)
[2018-10-15] MEDS: BENZTROPINE MESYLATE 1 MG TABLET (FP) PO SCH (22:29)
[2018-10-16] MEDS: chlordiazePOXIDE HCL 25 MG CAPSULE PO SCH ×3 (06:47→18:42)
--- NOTE | 2018-10-16 09:58 | PN ---
BHS COWS - Scale Resting Pulse: 0= OK 80 or Below Sweatin= Chills/Flushing Restless Observation: 1= Difficult to Sit Still Pupil Size: 1= Pupils >than Normal Bone or Joint Aches: 2= Severe Diffuse Aches Runny Nose/ Eye Tearin= Runny Nose/Eyes GI Upset > 30mins: 2= Nausea/Diarrhea Tremor Observation of Outstretched Hands: 2= Slight Tremor Visible Yawning Observation: 1= 1-2x During Session Anxiety or Irritability: 2=Irritable/Anxious Goose Flesh Skin: 0=Smooth Skin COWS Score: 14 S Progress Note (SOAP) Subjective: alert,irritable,anxious,interrupted sleep,pain in the body and back,tremor Objective: 10/16/18 10:00 Vital Signs Temperature 97.8 F 10/16/18 09:28 Pulse Rate 72 10/16/18 09:28 Respiratory Rate 18 10/16/18 09:28 Blood Pressure 104/58 L 10/16/18 09:28 O2 Sat by Pulse Oximetry (%) 10/16/18 10:00 Laboratory Last Values WBC 6.4 K/mm3 (4.0-10.0) 10/15/18 07:00 RBC 4.10 M/mm3 (3.60-5.2) 10/15/18 07:00 Hgb 12.2 GM/dL (10.7-15.3) 10/15/18 07:00 Hct 37.0 % (32.4-45.2) 10/15/18 07:00 MCV 90.2 fl (80-96) 10/15/18 07:00 MCH 29.7 pg (25.7-33.7) 10/15/18 07:00 MCHC 33.0 g/dl (32.0-36.0) 10/15/18 07:00 RDW 14.7 % (11.6-15.6) 10/15/18 07:00 Plt Count 214 K/MM3 (134-434) 10/15/18 07:00 MPV 10.3 fl (7.5-11.1) 10/15/18 07:00 Sodium 144 mmol/L (136-145) 10/15/18 07:00 Potassium 3.7 mmol/L (3.5-5.1) 10/15/18 07:00 Chloride 110 mmol/L (98-107) H 10/15/18 07:00 Carbon Dioxide 25 mmol/L (21-32) 10/15/18 07:00 Anion Gap 8 MMOL/L (8-16) 10/15/18 07:00 BUN 21 mg/dL (7-18) H 10/15/18 07:00 Creatinine 1.2 mg/dL (0.55-1.3) 10/15/18 07:00 Creat Clearance w eGFR 48.36 (>60) 10/15/18 07:00 Random Glucose 90 mg/dL (74-106) 10/15/18 07:00 Calcium 8.5 mg/dL (8.5-10.1) 10/15/18 07:00 Total Bilirubin 0.1 mg/dL (0.2-1) L 10/15/18 07:00 AST 27 U/L (15-37) 10/15/18 07:00 ALT 42 U/L (13-61) 10/15/18 07:00 Alkaline Phosphatase 66 U/L (45-117) 10/15/18 07:00 Total Protein 6.6 g/dl (6.4-8.2) 10/15/18 07:00 Albumin 2.7 g/dl (3.4-5.0) L 10/15/18 07:00 RPR Titer Nonreactive (NONREACTIVE) 10/15/18 07:00 HIV 1&2 Antibody Screen Negative 10/15/18 07:00 HIV P24 Antigen Negative 10/15/18 07:00 Assessment: 10/16/18 10:01 withdrawal symptom Plan: continue detox
[2018-10-16] MEDS ORDERED: METHADONE HCL 10 MG TABLET (FOR DETOX USE ONLY) PO ONE (10:00)
[2018-10-16] MEDS: NICOTINE 14 MG/24 HOURS TOPICAL PATCH TD SCH (10:31)
[2018-10-16] MEDS: PRENATAL VITAMINS W/ FOLIC ACID TABLET (FP) PO SCH (10:32)
[2018-10-16] MEDS: HALOPERIDOL 5 MG TABLET (FP) PO SCH ×2 (10:32→22:45)
[2018-10-16] MEDS: BENZTROPINE MESYLATE 1 MG TABLET (FP) PO SCH ×2 (10:32→22:45)
[2018-10-16] MEDS: hydrOXYzine PAMOATE 25 MG CAPSULE (FP) PO PRN (22:45)
[2018-10-16] MEDS: chlordiazePOXIDE HCL 10 MG CAPSULE PO SCH (22:45)
[2018-10-16] MEDS: THIAMINE HCL 100 MG TABLET (FP) PO SCH (22:45)
[2018-10-16] MEDS: ALBUTEROL SO4 8 GM HFA INHALER IH PRN (22:50)
[2018-10-16] MEDS ORDERED: chlordiazePOXIDE HCL 10 MG CAPSULE PO PRN (23:00)
[2018-10-17] MEDS: chlordiazePOXIDE HCL 10 MG CAPSULE PO SCH ×4 (05:43→22:46)
[2018-10-17] MEDS ORDERED: METHADONE HCL 10 MG TABLET (FOR DETOX USE ONLY) PO ONE (10:00)
[2018-10-17] MEDS: NICOTINE 14 MG/24 HOURS TOPICAL PATCH TD SCH (10:15)
[2018-10-17] MEDS: PRENATAL VITAMINS W/ FOLIC ACID TABLET (FP) PO SCH (10:17)
[2018-10-17] MEDS: BENZTROPINE MESYLATE 1 MG TABLET (FP) PO SCH ×2 (10:17→22:46)
[2018-10-17] MEDS: HALOPERIDOL 5 MG TABLET (FP) PO SCH ×2 (10:17→22:45)
[2018-10-17] MEDS: ALBUTEROL SO4 8 GM HFA INHALER IH PRN (10:20)
--- NOTE | 2018-10-17 16:41 | PN ---
BHS Progress Note (SOAP) Subjective: shakes Objective: 10/17/18 16:39 A & O x 3 gait steady Vital Signs Temperature 98.0 F 10/17/18 13:34 Pulse Rate 81 10/17/18 13:34 Respiratory Rate 18 10/17/18 13:34 Blood Pressure 123/73 10/17/18 13:34 O2 Sat by Pulse Oximetry (%) Assessment: 10/17/18 16:40 withdrawal sx Plan: continue detox
[2018-10-17] MEDS: hydrOXYzine PAMOATE 25 MG CAPSULE (FP) PO PRN (22:46)
[2018-10-17] MEDS: THIAMINE HCL 100 MG TABLET (FP) PO SCH (22:46)
[2018-10-18] MEDS ORDERED: METHADONE HCL 5 MG TABLET (FOR DETOX USE ONLY) PO ONE (06:00)
[2018-10-18] MEDS: NICOTINE 14 MG/24 HOURS TOPICAL PATCH TD SCH (10:18)
[2018-10-18] MEDS: BENZTROPINE MESYLATE 1 MG TABLET (FP) PO SCH ×2 (10:18→23:23)
[2018-10-18] MEDS: chlordiazePOXIDE HCL 10 MG CAPSULE PO SCH ×2 (10:18→23:23)
[2018-10-18] MEDS: HALOPERIDOL 5 MG TABLET (FP) PO SCH ×2 (10:18→23:23)
[2018-10-18] MEDS: PRENATAL VITAMINS W/ FOLIC ACID TABLET (FP) PO SCH (10:18)
--- NOTE | 2018-10-18 15:09 | PN ---
S Progress Note (SOAP) Subjective: Tremor, stomach ache, constipation Objective: 10/18/18 15:05 Last Vital Signs Temp Pulse Resp BP Pulse Ox 96.6 F L 79 16 97/64 10/18/18 09:21 10/18/18 09:21 10/18/18 09:21 10/18/18 09:21 Laboratory Tests 10/15/18 10/15/18 10/15/18 07:00 07:00 07:00 WBC 6.4 RBC 4.10 Hgb 12.2 Hct 37.0 MCV 90.2 MCH 29.7 MCHC 33.0 RDW 14.7 Plt Count 214 MPV 10.3 Sodium 144 Potassium 3.7 Chloride 110 H Carbon Dioxide 25 Anion Gap 8 BUN 21 H Creatinine 1.2 Creat Clearance w eGFR 48.36 Random Glucose 90 Calcium 8.5 Total Bilirubin 0.1 L AST 27 ALT 42 Alkaline Phosphatase 66 Total Protein 6.6 Albumin 2.7 L RPR Titer Nonreactive HIV 1&2 Antibody Screen HIV P24 Antigen 10/15/18 07:00 WBC RBC Hgb Hct MCV MCH MCHC RDW Plt Count MPV Sodium Potassium Chloride Carbon Dioxide Anion Gap BUN Creatinine Creat Clearance w eGFR Random Glucose Calcium Total Bilirubin AST ALT Alkaline Phosphatase Total Protein Albumin RPR Titer HIV 1&2 Antibody Screen Negative HIV P24 Antigen Negative Labs reviewed: SARAH noted Assessment: 10/18/18 15:07 Withdrawal symptoms Noted with SARAH Plan: Continue detox SARAH: Encouraged PO water hydration Constipation: encouraged prn MOM/citroma
[2018-10-18] MEDS: hydrOXYzine PAMOATE 25 MG CAPSULE (FP) PO PRN (23:23)
[2018-10-18] MEDS: MELATONIN 5 MG TABLETS PO PRN (23:23)
[2018-10-18] MEDS: THIAMINE HCL 100 MG TABLET (FP) PO SCH (23:23)
[2018-10-19 06:19] VITALS: PULSE 80
[2018-10-19 09:22] VITALS: BP 146/66; TEMP 98.4
[2018-10-19] MEDS: HALOPERIDOL 5 MG TABLET (FP) PO SCH (10:28)
[2018-10-19] MEDS: NICOTINE 14 MG/24 HOURS TOPICAL PATCH TD SCH (10:28)
[2018-10-19] MEDS: PRENATAL VITAMINS W/ FOLIC ACID TABLET (FP) PO SCH (10:28)
[2018-10-19] MEDS: BENZTROPINE MESYLATE 1 MG TABLET (FP) PO SCH (10:28)
--- NOTE | 2018-10-19 13:42 | DS ---
[facility] Detox Discharge Summary Admission Date: 10/14/18 Discharge Date: 10/19/18 - History Present History: Cocaine Dependence, Opioid Dependence Additional Comments: PATIENT GOING TO [facility] ([facility]) FOR AFTERCARE. PATIENT WAS DISCHARGED FROM DETOX UNIT TO BE TAKEN OVER TO REHAB UNIT IN STABLE MEDICAL CONDITION. Pertinent Past History: History of Schizoaffective Disorder, Hep c, Asthma, History Of Anemia, Hep C, History Of Depression, History Of Bipolar Disorder, Nicotine Dependence. - Physical Exam Results Vital Signs: Vital Signs Temperature 98.4 F 10/19/18 09:21 Pulse Rate 80 10/19/18 09:21 Respiratory Rate 18 10/19/18 09:21 Blood Pressure 146/66 10/19/18 09:21 O2 Sat by Pulse Oximetry (%) Pertinent Admission Physical Exam Findings: WITHDRAWAL SYMPTOMS. Laboratory Tests 10/15/18 10/15/18 10/15/18 07:00 07:00 07:00 WBC 6.4 RBC 4.10 Hgb 12.2 Hct 37.0 MCV 90.2 MCH 29.7 MCHC 33.0 RDW 14.7 Plt Count 214 MPV 10.3 Sodium 144 Potassium 3.7 Chloride 110 H Carbon Dioxide 25 Anion Gap 8 BUN 21 H Creatinine 1.2 Creat Clearance w eGFR 48.36 Random Glucose 90 Calcium 8.5 Total Bilirubin 0.1 L AST 27 ALT 42 Alkaline Phosphatase 66 Total Protein 6.6 Albumin 2.7 L RPR Titer Nonreactive HIV 1&2 Antibody Screen HIV P24 Antigen 10/15/18 07:00 WBC RBC Hgb Hct MCV MCH MCHC RDW Plt Count MPV Sodium Potassium Chloride Carbon Dioxide Anion Gap BUN Creatinine Creat Clearance w eGFR Random Glucose Calcium Total Bilirubin AST ALT Alkaline Phosphatase Total Protein Albumin RPR Titer HIV 1&2 Antibody Screen Negative HIV P24 Antigen Negative LABS NOTED. - Treatment Hospital Course: Detox Protocol Followed, Detoxed Safely, Responded well, Discharged Condition Good, Rehab Referral Accepted Patient has Accepted a Rehab Referral to: [facility] [place] - Medication Discharge Medications: Ambulatory Orders Sulfamethoxazole/Trimethoprim [Bactrim DS -] 1 each PO BID #10 tablet 06/07/18 Albuterol Sulfate Inhaler - [Ventolin HFA Inhaler -] 2 inhaler PO PRN 10/14/18 Cogentin - 2 mg PO BID 10/14/18 Haldol 2 mg PO BID 10/14/18 Quetiapine Fumarate [Seroquel] 300 mg PO HS 10/14/18 Benztropine Mesylate [Cogentin -] 1 mg PO BID 10/15/18 Haloperidol [Haldol -] 5 mg PO BID 10/15/18 - Diagnosis (1) Opioid dependence with withdrawal Status: Acute (2) Asthma Status: Chronic Qualifiers: Asthma severity: unspecified severity Asthma persistence: unspecified Asthma complication type: uncomplicated Qualified Code(s): J45.909 - Unspecified asthma, uncomplicated (3) Cocaine dependence Status: Chronic Qualifiers: Substance use status: uncomplicated Qualified Code(s): F14.20 - Cocaine dependence, uncomplicated (4) Hepatitis C Status: Chronic Qualifiers: Viral hepatitis chronicity: unspecified Hepatic coma status: without hepatic coma Qualified Code(s): B19.20 - Unspecified viral hepatitis C without hepatic coma (5) Nicotine dependence Status: Chronic Qualifiers: Nicotine product type: cigarettes Substance use status: in withdrawal Qualified Code(s): F17.213 - Nicotine dependence, cigarettes, with withdrawal (6) Obesity Status: Chronic Qualifiers: Obesity type: unspecified obesity type Obesity classification: adult class 1 (BMI 30 - 34.9) Serious obesity comorbidity presence: unspecified whether serious comorbidity present Body mass index: BMI 33.0-33.9 Qualified Code(s) : E66.9 - Obesity, unspecified; Z68.33 - Body mass index (BMI) 33.0-33.9, adult (7) Schizoaffective disorder Status: Chronic Qualifiers: Schizoaffective disorder type: unspecified Qualified Code(s): F25.9 - Schizoaffective disorder, unspecified - AMA Did Patient Leave Against Medical Advice: No
== END 2018-10-19 13:01 | disposition other institution (70) | DRG 773 ==
LOC: YASAS 20:45 → Y6N 23:20
PROVIDERS: ADMIT Surgery; ATTEND Surgery
PROC: HZ2ZZZZ Detoxification Services for Substance Abuse Treatment (ICD-10-PCS; principal; 2018-10-14)
DX: F11.23 Opioid dependence with withdrawal (principal); F14.20 Cocaine dependence, uncomplicated; F17.213 Nicotine dependence, cigarettes, with withdrawal; F25.9 Schizoaffective disorder, unspecified; J45.909 Unspecified asthma, uncomplicated; B19.20 Unspecified viral hepatitis C without hepatic coma; N17.9 Acute kidney failure, unspecified; E66.9 Obesity, unspecified; Z68.33 Body mass index [BMI] 33.0-33.9, adult; Z91.14 Patient's other noncompliance with medication regimen
CPT/HCPCS: 36415; 80053; 85027; 86593; 87389; J0735

== ENCOUNTER 2018-10-19 13:13 | Inpatient (IN) | payer OTHER ==
[2018-10-19] MEDS ORDERED: MAG HYDROX/AL HYDROX/SIMETH 30 ML UNIT-DOSE CUP PO PRN (13:24)
[2018-10-19] MEDS ORDERED: NICOTINE POLACRILEX 2 MG GUM BUC PRN (13:24)
[2018-10-19] MEDS ORDERED: guaiFENesin 200 MG/10 ML 10 ML UNIT-DOSE CUPS PO PRN (13:24)
[2018-10-19] MEDS ORDERED: ACETAMINOPHEN 325 MG TABLET (FP) PO PRN (13:24)
[2018-10-19] MEDS ORDERED: MENTHOL/PHENOL 1 EACH UD MM PRN (13:24)
[2018-10-19] MEDS ORDERED: MAGNESIUM HYDROX 2400MG/30ML ORAL SUSPENSION 30 ML CUP PO PRN (13:24)
[2018-10-19] MEDS ORDERED: P-EPHED 60MG/TRIPROLIDI 2.5MG TABLET PO PRN (13:24)
[2018-10-19] MEDS ORDERED: MAGNESIUM CITRATE 300 ML BOTTLE PO PRN (13:24)
[2018-10-19] MEDS ORDERED: LOPERAMIDE HCL 2 MG CAPSULE PO PRN (13:24)
--- NOTE | 2018-10-19 13:33 | HP ---
[facility] Rehab Assess/Revision - Admission History Admitted to Rehab from: [facility] Date of Admission to Rehab: 10/19/2018 - Vital signs Vital Signs: Vital Signs Period Temp Pulse Resp BP Sys/Herring Pulse Ox Last 24 Hr 99.2 F 92 18 92/59 - Findings Detox History & Physical reviewed: Yes Concur with findings: Yes Comments/Additional Findings: PATIENT'S MEDICAL / MEDICATION HISTORY REVIEWED PRIOR TO DISCHARGE FROM DETOX UNIT. PATIENT WAS DISCHARGED FROM DETOX UNIT TO BE TAKEN OVER TO REHAB UNIT IN STABLE MEDICAL CONDITION. Inpatient Rehab Admission - Rehab Decision to Admit Inpatient rehab admission?: Yes - Initial Determination Are CD services needed?: Yes Free of communicable disease: Yes Not in need of hospitalization: Yes - Rehab Admission Criteria Previous failed treatment: Yes Poor recovery environment: Yes Comorbidities: Yes Lacks judgement: No Patient is meeting Inpatient Rehab admission criteria:: Yes
[2018-10-19] MEDS ORDERED: hydrOXYzine PAMOATE 50 MG CAPSULE (FP) PO PRN (15:05)
[2018-10-19] MEDS ORDERED: METHOCARBAMOL 500 MG TABLET PO PRN (15:06)
--- NOTE | 2018-10-19 15:22 | PN ---
[facility] Progress Note Note: Psychiatry Attending's note (follow-up) : Case discussed with medical SOCIAL SERVICES MANAGER Arvind Garrison. Baler Operator is informed of transfer to [facility]. From [facility] [address]. Chart reviewed. Medications revisited. aspnet developer Juany's note of 10/15/18 : appreciated. Continuity of care (medications reconciled) : Haldol 5 mg po bid Cogentin 1 mg po bid
[2018-10-19] MEDS: BENZTROPINE MESYLATE 1 MG TABLET (FP) PO SCH (21:56)
[2018-10-19] MEDS: HALOPERIDOL 5 MG TABLET (FP) PO SCH (21:56)
[2018-10-19] MEDS: THIAMINE HCL 100 MG TABLET (FP) PO SCH (21:56)
[2018-10-19] MEDS ORDERED: MELATONIN 5 MG TABLETS PO PRN (22:00)
[2018-10-20] MEDS: IBUPROFEN 400 MG TABLET (FP) PO PRN ×2 (06:45→21:32)
[2018-10-20] MEDS: BENZTROPINE MESYLATE 1 MG TABLET (FP) PO SCH ×2 (09:41→21:32)
[2018-10-20] MEDS: NICOTINE 14 MG/24 HOURS TOPICAL PATCH TD SCH (09:41)
[2018-10-20] MEDS: HALOPERIDOL 5 MG TABLET (FP) PO SCH ×2 (09:41→21:32)
[2018-10-20] MEDS: PRENATAL VITAMINS W/ FOLIC ACID TABLET (FP) PO SCH (09:41)
[2018-10-20] MEDS: THIAMINE HCL 100 MG TABLET (FP) PO SCH (21:32)
[2018-10-21] MEDS: NICOTINE 14 MG/24 HOURS TOPICAL PATCH TD SCH (09:48)
[2018-10-21] MEDS: PRENATAL VITAMINS W/ FOLIC ACID TABLET (FP) PO SCH (09:49)
[2018-10-21] MEDS: HALOPERIDOL 5 MG TABLET (FP) PO SCH ×2 (09:49→21:28)
[2018-10-21] MEDS: BENZTROPINE MESYLATE 1 MG TABLET (FP) PO SCH ×2 (09:49→21:28)
[2018-10-21] MEDS: THIAMINE HCL 100 MG TABLET (FP) PO SCH (21:28)
[2018-10-21] MEDS: ALBUTEROL SO4 8 GM HFA INHALER IH PRN (21:29)
[2018-10-22] MEDS: NICOTINE 14 MG/24 HOURS TOPICAL PATCH TD SCH (09:36)
[2018-10-22] MEDS: HALOPERIDOL 5 MG TABLET (FP) PO SCH ×2 (09:37→21:44)
[2018-10-22] MEDS: BENZTROPINE MESYLATE 1 MG TABLET (FP) PO SCH ×2 (09:37→21:44)
[2018-10-22] MEDS: PRENATAL VITAMINS W/ FOLIC ACID TABLET (FP) PO SCH (09:37)
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
[2018-10-22] MEDS ORDERED: MELATONIN 5 MG TABLETS PO PRN (11:09)
[2018-10-22] MEDS: THIAMINE HCL 100 MG TABLET (FP) PO SCH (21:44)
[2018-10-23] MEDS: HALOPERIDOL 5 MG TABLET (FP) PO SCH ×2 (09:19→21:38)
[2018-10-23] MEDS: PRENATAL VITAMINS W/ FOLIC ACID TABLET (FP) PO SCH (09:19)
[2018-10-23] MEDS: NICOTINE 14 MG/24 HOURS TOPICAL PATCH TD SCH (09:19)
[2018-10-23] MEDS: BENZTROPINE MESYLATE 1 MG TABLET (FP) PO SCH ×2 (09:19→21:38)
[2018-10-23] MEDS: THIAMINE HCL 100 MG TABLET (FP) PO SCH (21:38)
[2018-10-23] MEDS: ALBUTEROL SO4 8 GM HFA INHALER IH PRN (21:39)
[2018-10-24 07:15] VITALS: BP 115/76; PULSE 71; TEMP 98
[2018-10-24] MEDS: PRENATAL VITAMINS W/ FOLIC ACID TABLET (FP) PO SCH (09:42)
[2018-10-24] MEDS: NICOTINE 14 MG/24 HOURS TOPICAL PATCH TD SCH (09:42)
[2018-10-24] MEDS: HALOPERIDOL 5 MG TABLET (FP) PO SCH (09:43)
[2018-10-24] MEDS: BENZTROPINE MESYLATE 1 MG TABLET (FP) PO SCH (09:43)
--- NOTE | 2018-10-24 19:38 | PN ---
[facility] Progress Note Note: patient did not want to continue treatment,would like to go home ,the risk of relapsing is high, signed release ama,advise to go to er if any problem this note is for discharge summary for rehab patient admitted 10/19/18 discharge 10/24/18 diagnosis heroin dependence cocaine dependence asthma hepatitis c patient left AMA
== END 2018-10-24 20:04 | disposition left against medical advice (07) | DRG 770 ==
LOC: YASAS 13:13 → Y3E 13:15
PROVIDERS: ADMIT Neuromusculoskeletal Medicine & OMM; ATTEND Neuromusculoskeletal Medicine & OMM
PROC: HZ42ZZZ Group Counseling for Substance Abuse Treatment, Cognitive-Behavioral (ICD-10-PCS; principal; 2018-10-19)
DX: F11.20 Opioid dependence, uncomplicated (principal); F10.20 Alcohol dependence, uncomplicated; F14.20 Cocaine dependence, uncomplicated; F17.210 Nicotine dependence, cigarettes, uncomplicated; F25.9 Schizoaffective disorder, unspecified; F43.10 Post-traumatic stress disorder, unspecified; J45.909 Unspecified asthma, uncomplicated; B18.2 Chronic viral hepatitis C; E66.9 Obesity, unspecified; Z68.34 Body mass index [BMI] 34.0-34.9, adult; Z59.0 Homelessness